=== PATIENT | male | born 1940 | race Caucasian/White ===

== ENCOUNTER 2019-10-06 07:32 | Day surgery (SDC) | payer OTHER, MEDICARE ==
[~2019-10-06 07:32] MED LIST: PROPOFOL INJ 200 MG/20 ML VIAL IV ONE
[2019-10-06] MEDS ORDERED: FENTANYL CITRATE INJ/PF 100 MCG/2 ML AMPUL IV PRN ×2 (09:04)
[2019-10-06] MEDS ORDERED: DIPHENHYDRAMINE HCL 50 MG/ML VIAL IV PRN (09:04)
[2019-10-06] MEDS ORDERED: ONDANSETRON HCL INJ/PF 4 MG/2 ML SDV IV PRN (09:04)
[2019-10-06] MEDS ORDERED: PROPOFOL INJ 200 MG/20 ML VIAL IV ONE (10:43)
[2019-10-06 12:01] VITALS: BP 156/75
--- NOTE | 2019-10-06 13:34 | Operative Report ---
Operative Report DATE OF SURGERY: 10/06/19 Operative Report: The risk, benefits and alternatives of the procedure including the risk of bleeding, perforation requiring surgery have been explained to the patient in detail and informed consent has been obtained. Patient is taken back to the operating room and placed in a left, lateral decubital position. Timeout was called. Propofol medication is administered. Rectal examination is done which did not reveal any masses, tears or fissures. An Olympus videoscope was introduced into the patient's rectum. Scope was then carefully advanced all the way to the cecum. Cecum was identified by the usual anatomical landmarks including the ileocecal valve as well as the appendiceal office. Photodocumentation is obtained. Scope was then sequentially pulled back via the various segments of the colon including the ascending colon, hepatic flexure, transverse colon, splenic flexure, descending colon finding to the rectosigmoid portions of the colon. Retroflexion maneuvers performed. PREOPERATIVE DIAGNOSIS: Anemia, GI bleeding POSTOPERATIVE DIAGNOSIS: Ascending colon polyp was able to be removed via biopsy forceps. A rectal polyp that was removed via snare polypectomy and retrieved. Significant sigmoid diverticulosis without any evidence of diverticulitis. Internal hemorrhoids. Sessile elongated polyp noted in the ascending colon status post piecemeal removal. Endo Clip was placed. Status post injection with Leah ink in case biopsies are positive for malignancy. Patient is instructed to stop his Eliquis temporarily until we receive the pathology back to determine next course of action. And also to reduce risk of post polypectomy bleeding. OPERATION: Colonoscopy with snare polypectomy. Submucosal injection. Biopsy obtained SURGEON: MILDRED PIÑA ANESTHESIA: LMAC TISSUE REMOVED OR ALTERED: As noted above. COMPLICATIONS: None. ESTIMATED BLOOD LOSS: None. INTRAOPERATIVE FINDINGS: As noted above. PROCEDURE: Patient tolerated the procedure well. No immediate postprocedure complications are noted. Patient is discharged in good condition. Discharge date 10/06/2019. Discharge diet: Regular. Discharge activity: Regular. 2 to 3-week follow-up to discuss findings. Depending on pathology of the polyp 3 to 5-year surveillance colonoscopy. May need upper endoscopy. Depending on the pathology of the polyp patient may need surgery We will keep him off his Eliquis for 2 more days and then gradually restart to reduce the risk of post polypectomy bleeding; and Endo Clip was placed to reduce the risk.
== END 2019-10-06 11:10 | disposition home or self-care (01) ==
LOC: OROUT 07:32
PROVIDERS: ATTEND Internal Medicine Gastroenterology
DX: D12.0 Benign neoplasm of cecum (principal); D12.3 Benign neoplasm of transverse colon; D12.8 Benign neoplasm of rectum; K64.8 Other hemorrhoids; D64.9 Anemia, unspecified; F17.210 Nicotine dependence, cigarettes, uncomplicated; Z79.01 Long term (current) use of anticoagulants
CPT/HCPCS: 45380; 45385; 45381; 88305 ×2; J2704; 811